=== PATIENT | female | born 1960 | race Caucasian/White ===

== ENCOUNTER 2019-06-18 06:22 | Inpatient (IN) | payer OTHER ==
[2019-06-17 10:18] VITALS: BMI 23.0
[~2019-06-18 06:22] MED LIST: BACITRACIN 15 GM TUBE TOPICAL OINTMENT TP ONE
[2019-06-18] MEDS ORDERED: BUPIVACAINE HCL/PF 0.5% (5MG/ML) 10 ML VIAL ONE (07:22)
[2019-06-18] MEDS ORDERED: BACITRACIN 15 GM TUBE TOPICAL OINTMENT ONE (07:22)
[2019-06-18] MEDS ORDERED: THROMBIN (BOVINE) 5,000 UNIT VIAL TP ONE ×2 (07:23→08:55)
[2019-06-18] MEDS ORDERED: fentaNYL CITRATE 250 MCG/5 ML VIAL ONE (08:02)
[2019-06-18] MEDS ORDERED: PROPOFOL 20 ML ONE ×9 (08:02→10:50)
[2019-06-18] MEDS ORDERED: MIDAZOLAM HCL 2 MG/2 ML SINGLE DOSE VIAL ONE ×2 (08:02)
[2019-06-18] MEDS ORDERED: ROCURONIUM BROMIDE 50 MG/5 ML SYRINGE ONE (08:03)
--- NOTE | 2019-06-18 08:13 | CONSULT ---
Consult - text type - Consultation Consultation Note: NEUROSURGERY Pre-op Pt examined Incision marked All questions answered For L4-5 PLIF and all indicated procedures LSO brace measured this am SSEP/EMG monitoring
[2019-06-18] MEDS ORDERED: ceFAZolin SODIUM 1 GM VIAL IVPB ONE (08:28)
[2019-06-18] MEDS ORDERED: BACITRACIN 50,000 UNITS VIAL NR ONE (08:55)
[2019-06-18] MEDS ORDERED: NEOSTIGMINE METHYLSULFATE 0.5 MG/1 ML - 10 ML MDV ONE (09:41)
[2019-06-18] MEDS ORDERED: BACITRACIN 15 GM TUBE TOPICAL OINTMENT TP ONE (11:33)
[2019-06-18] MEDS ORDERED: BUPIVACAINE HCL/PF 0.5% (5MG/ML) 10 ML VIAL IJ ONE ×2 (11:33)
[2019-06-18] MEDS ORDERED: ONDANSETRON 4 MG/2 ML VIAL IVPUSH PRN ×3 (12:13→12:29)
[2019-06-18] MEDS ORDERED: BISACODYL 10 MG SUPP.RECT RC PRN (12:13)
--- NOTE | 2019-06-18 12:13 | OP ---
Operative Note - Note: Operative Date: 06/18/19 Pre-Operative Diagnosis: L4-5 spondylolisthesis, stenosis, R radiculopathy Operation: B complete L4 and partial B L5 laminectomies, bone graft harvest, facetectomy, interbody and postero-lateral fusion L4-5, bilateral interbody implants 11 x 25 mm, pedicle screw fixation system L4-5; fluoroscopy; microdissection Findings: moderate stenosis central canal and moderate to marked stenosis lateral recess and foramen; instability L4-5; thinned out dura under chronic pressure Implants: [employer] Autumn 4.5 titanium system: 6.5 x 40 mm screws B L4 and L5; B 30 mm rods; 11x25 B L4-5 interbody implants Post-Operative Diagnosis: Same as Pre-op Surgeon: Luis Do (co-surg Lent) Anesthesiologist/PLANT BUYER: Sheyla Eastman MD Anesthesia: General Specimens Removed: L4-5 DDD Estimated Blood Loss (mls): 200
[2019-06-18] MEDS ORDERED: diazePAM 5 MG TABLET PO SCH (12:15)
[2019-06-18] MEDS ORDERED: D5-1/2NS+20 MEQ KCL - 1,000 ML IV SCH (12:15)
[2019-06-18] MEDS ORDERED: HYDROmorphone *PCA* 10MG/50ML DISP.SYRIN ONE (12:25)
[2019-06-18] MEDS ORDERED: PROMETHAZINE HCL 25 MG/1 ML VIAL IVPB PRN (12:29)
[2019-06-18] MEDS ORDERED: DEXAMETHASONE SOD PHOSPHATE 4 MG/1 ML VIAL IVPUSH PRN (12:29)
[2019-06-18] MEDS ORDERED: LACTATED RINGERS SOLUTION 1,000 ML IV SCH (12:30)
[2019-06-18] MEDS ORDERED: HYDROmorphone *PCA* 10MG/50ML DISP.SYRIN PCA SCH (12:30)
[2019-06-18 13:02] LABS: HEMATOCRIT 34.1 % (32.4-45.2); HEMOGLOBIN 11.9 GM/dL (10.7-15.3); MCH 31.9 pg (25.7-33.7); MEAN CELL VOLUME 91.1 fl (80-96); MEAN PLT VOLUME 9.5 fl (7.5-11.1); PLATELET COUNT 143 K/MM3 (134-434); RBC 3.74 M/mm3 (3.60-5.2); RDW 13.5 % (11.6-15.6); WHITE BLOOD COUNT 5.1 K/mm3 (4.0-10.0)
--- NOTE | 2019-06-18 13:09 | PN ---
Progress Note (short form) - Note Progress Note: NEUROSURGERY In PACU Incisional pain AF, VSS, O2 sat 100% PE: still sleepy CV- RR; Lungs- CTA B; Abd- benign; Ext- no sign of DVT CN- intact; Motor- B UE/LE at least 4-; Sensation- intact LT Dressing intact LSO brace pending (measured this am) Pain meds- FACTORY MACHINE COMPUTER OPERATOR Valium for muscle relaxation iv abx Incentive spirometry Labs pending Findings d/w family
[2019-06-18] MEDS ORDERED: PROMETHAZINE HCL 25 MG/1 ML VIAL ONE (13:22)
[2019-06-18 13:26] LABS: BLOOD UREA NITROGEN 9.4 mg/dL (7-18); CALCIUM 8.4 mg/dL (8.5-10.1); CREATININE 0.8 mg/dL (0.55-1.3); POTASSIUM 3.7 mmol/L (3.5-5.1)
[2019-06-18] MEDS: D5-1/2NS+20 MEQ KCL - 20 MEQ/1,000 ML INFUS.BAG IV SCH (15:00)
[2019-06-18] MEDS ORDERED: ceFAZolin SODIUM 1 GM VIAL ONE (17:28)
[2019-06-18] MEDS ORDERED: CEFAZOLIN 1 GM/D5W 1 GM/50 ML BAG IVPB SCH (18:00)
--- NOTE | 2019-06-18 20:44 | OP ---
DATE OF OPERATION: 06/18/2019 PREOPERATIVE DIAGNOSIS: L4-5 radiculopathy and instability. POSTOPERATIVE DIAGNOSIS: L4-5 radiculopathy and instability. PROCEDURE: L4-5 posterior lumbar interbody fusion. SURGICAL ATTENDING: Db Block M.D., Luis Do M.D. CLOSURE: Number 1 Vicryl fascia, 3-0 subcutaneous and 4-0 Vicryl subcuticular for skin. ESTIMATED BLOOD LOSS: Less than 100 mL. COMPLICATIONS: None. CONDITION: To recovery in stable condition. DESCRIPTION OF OPERATIVE PROCEDURE: Patient taken to the operating room on June 18, 2019. General anesthesia and endotracheal intubation was administered by the anesthesiologist. IV antibiotics were administered prophylactically prior to the case. The patient was placed in the prone position with all prominences well padded in the usual fashion. The lower lumbar region was prepped and draped in the usual sterile fashion. Isolation at the appropriate level was confirmed using spinal needle and x-ray. A 3-inch longitudinal incision was made over the spinous processes from L2-5. Hemostasis achieved with Bovie cautery. Sharp dissection was carried down to the level of spinous processes. Subperiosteal dissection was performed down to the level of the lamina both on the right and left sides. At this time, Dr. Jhon Do, neurosurgeon, assumed control of the case to perform the interbody fusion. After Dr. Jhon Do completed the interbody fusion, we closed the incision in layers. The fascia was closed with number 1 Vicryl, 3-0 Vicryl for subcutaneous and 4-0 for skin with Steri-Strips and pressure dressing. Patient was awakened from anesthesia and transferred to recovery in stable condition with no complications. DB BLOCK M.D. [id number]
[2019-06-18] MEDS: diazePAM 5 MG TABLET PO SCH (22:00)
[2019-06-18] MEDS: DOCUSATE SODIUM 100 MG CAPSULE (FP) PO SCH (22:00)
[2019-06-19] MEDS ORDERED: DEXTROSE 5%-WATER - 50 ML IVPB ONE ×2 (01:34→09:20)
[2019-06-19] MEDS ORDERED: ceFAZolin SODIUM 1 GM VIAL ONE ×2 (01:34→09:20)
[2019-06-19] MEDS: CEFAZOLIN 1 GM in DEXTROSE 5%-WATER - 50 ML IVPB SCH ×2 (01:43→09:25)
[2019-06-19] MEDS: diazePAM 5 MG TABLET PO SCH (06:00)
[2019-06-19] MEDS: DOCUSATE SODIUM 100 MG CAPSULE (FP) PO SCH ×3 (06:00→21:13)
--- NOTE | 2019-06-19 09:08 | PN ---
Progress Note (short form) - Note Progress Note: NEUROSURGERY POD #1 Incisional pain Able to void this am x2 Only mild R thigh pain Tmax 100.1, AF now, VSS On DIGITIZER for pain PE: still somewhat sleepy CV- RR; Lungs- CTA B; Abd- benign; Ext- no sign of DVT CN- intact; Motor- B UE/LE at least 4+; Sensation- intact LT Dressing intact Labs reviewed- ok Back brace when OOB Pain meds- DIGITIZER Valium for muscle relaxation, decrease to 2 mg tid Incentive spirometry iv abx Incentive spirometry Findings d/w pt
--- NOTE | 2019-06-19 09:22 | OP ---
DATE OF OPERATION: 06/18/2019 PREOPERATIVE DIAGNOSES: 1. L4-L5 spondylolisthesis with moderate central and moderate to marked lateral recess and foraminal stenosis and lumbar radiculopathy. 2. Multilevel lumbar degenerative disc disease. POSTOPERATIVE DIAGNOSES: 1. L4-L5 spondylolisthesis with moderate central and moderate to marked lateral recess and foraminal stenosis and lumbar radiculopathy. 2. Multilevel lumbar degenerative disc disease. PROCEDURE: 1. Complete bilateral L4 and partial bilateral L5 laminectomy for decompressive laminectomies including facetectomy and foraminotomy and discectomy at L4-L5 (44143-73-68, [id number]). 2. Osseo autologous lamina and spinous process bone for interbody and posterolateral fusion ([id number]). 3. Microsurgical dissection with operative microscope with microsurgical technique ([id number]). 4. Posterior lumber interbody and posterolateral fusion at L4-L5 ([id number]). 5. Utilization intervertebral bilateral interbody implants 11 x 25 mm in size from [employer] ([id number]). 6. Posterior lumbar pedicle screw fixation system placement from L4 to L5 with [employer] via Autumn 4.5 titanium system (6.5 x 40 mm screws bilaterally and 30 mm rods bilaterally with locking screws) ([id number]). 7. Intraoperative fluoroscopy for localization and pedicle screw placement ([id number]). ATTENDING SURGEON: Luis Do MD CO-SURGEON: Db Block MD ESTIMATED BLOOD LOSS: 200 mL. ANESTHESIA: General endotracheal. ANESTHESIOLOGIST: Sheyla Eastman MD FINDINGS: 1. L4-L5 spondylolisthesis and instability. 2. Marked spinal stenosis at L4-L5 with irritable lumbar nerve roots. INDICATIONS: The patient is a 59-year-old female with back pain and lumbar radiculopathy. Because of her intractable symptoms and failure of conservative treatment, she has opted for lumbar decompression and fusion with instrumentation. MRI demonstrated L4-L5 spondylolisthesis and stenosis, and she has predominant right-sided sciatica. She has failed multimodalities of conservative treatment. The risks of surgery include, but are not limited to, bleeding, infection, dural tear with CSF leak, neurological injury, increased thromboembolic risks, and the risks of general anesthesia. The patient understands the indications for procedure, the procedure in detail, risks and benefits, and alternatives for treatment of her lumbar condition, and wishes to proceed with surgery. No guarantees were given for a favorable outcome. PROCEDURE IN DETAIL: The patient was taken to the operating room. She was placed in supine position. After general anesthesia was induced and appropriate monitoring lines were placed, the SSEP and EMG electrodes were placed, a Quintero catheter was placed. The patient was then turned into a prone position on a Osei frame. All pressure points were checked and padded. Baseline monitoring signals were obtained. The exposure was obtained by Dr. Block and was dictated under separate dictation. After the procedure was taken over from Dr. Block, 2 self-retaining retractors were inserted, and the localizing x-ray was obtained with the clamp at the L4-L5 interspinous space. The supraspinous and intraspinous ligament were resected with a Leksell rongeur and the spinous process at L4 and partially at L3 was resected with Leksell rongeur. A complete laminectomy was carried out at L4 bilaterally as well as partially at L5 bilaterally. The bone was saved and morselized for bone graft purposes via bone mill. Facetectomy was also carried out to mobilize the spine at the L4-L5 level. There was already segmental instability prior to the laminectomy. This portion of the procedure was performed with the use of the operative microscope for both illumination and magnification. Microsurgical techniques were utilized. Adequate hemostasis was obtained with bipolar electrocautery. After decompression of the lateral recess was carried out, under gentle nerve root retraction, this annulus was incised with a No. 15 blade on the left side, serially larger disc space scrapers from 6 up to 11 mm were used. A 12 mm disc space retractor was used after disc space was cleaned out with some pituitary rongeurs. Attention was then turned to right-sided disc space. With gentle right L5 nerve root retraction, disc annulus was incised with a No. 15 blade. Gentle retraction was applied because there was a fairly thin-appearing dura because of chronic pressure most likely. Serially larger disc space scrapers from 7 to 11 mm were used, and side-cutting as well as down-cutting curettes were used to clean the space. Disc material was removed with pituitary rongeur. An 11 x 25 mm interbody implant was inserted and countersunk by about 10 mm from the posterior margin of L5 vertebral body. Because of the anterolisthesis at L4-L5, it was only flush with the posterior margin of the L4 vertebral body. Attention was then turned to the left-sided disc space where the disc space cleaning procedure was repeated. After disc material was removed, a central portion of disc material was packed with autologous morselized bone graft with bone dust, which was harvested from the laminectomy portion of the procedure. Another 11 x 25 mm interbody similar implant was placed and countersunk. At this point, the microscope was moved out of the way, and fluoroscope was brought first to the AP position, and then lateral position and then draped sterilely. The anterior points of the pedicle screws were marked with the high-speed pneumatic drill. The hand-held awl was used to create a path for the pedicle screws. The screw holes were then tapped and then palpated. Bicortical screw purchase was performed at L5 in order to try to reduce the spondylolisthesis and to have good bone purchase. The screws were placed at L4 and L5 bilaterally with 6.5 x 40 mm screws. EMG threshold with the screws were all greater than 18 milliamps. The 30 mm rods were loaded on top of the screws and locked down with locking screws. The screws were compressed prior to final tightening. Torque and counter-torque wrenches were used for final tightening of the screw system. The wound was once again irrigated with antibiotic-containing irrigation. The posterolateral surface of the spine was decorticated with high-speed pneumatic drill and packed with autologous morselized bone graft and bone dust. Then, 20 mL of 0.5% Marcaine were injected into the paraspinal muscles bilaterally. After hemostasis was obtained, the wound was irrigated with antibiotic-containing irrigation. The closure was dictated by Dr. Block under a separate dictation. The patient tolerated the procedure well, was turned back to the supine position and extubated. All needle and lap counts were correct. SSEP and EMG signals remained stable throughout. This patient received 1 dose of 1 g of Ancef prior to incision. The OR timeout procedure was followed. Juani [id number] cc: Db Block MD [facility]OSPITALCrystal
--- NOTE | 2019-06-19 13:09 | PN ---
Progress Note (short form) - Note Progress Note: Anesthesia POD#1 S/P PLIF under GA and TESTER OPERATOR VSS,no N/V,pain is still a factor,feels dizzy when stands. ON TESTER OPERATOR for the pain control. A/P Continue the TESTER OPERATOR today. Pilar Ac MD.
[2019-06-19] MEDS: diazePAM 2 MG TABLET PO SCH ×2 (13:56→21:13)
[2019-06-19] MEDS: D5-1/2NS+20 MEQ KCL - 20 MEQ/1,000 ML INFUS.BAG IV SCH (13:56)
[2019-06-19] MEDS: ACETAMINOPHEN 325 MG TABLET (FP) PO PRN (16:36)
[2019-06-20] MEDS: D5-1/2NS+20 MEQ KCL - 20 MEQ/1,000 ML INFUS.BAG IV SCH ×3 (00:05→23:10)
[2019-06-20] MEDS: diazePAM 2 MG TABLET PO SCH ×3 (05:38→23:10)
[2019-06-20] MEDS: DOCUSATE SODIUM 100 MG CAPSULE (FP) PO SCH ×3 (05:38→23:10)
--- NOTE | 2019-06-20 08:05 | PN ---
Progress Note (short form) - Note Progress Note: NEUROSURGERY POD #2 Incisional pain Able to void fine No BM yest Tmax 101.2 now 100.3, VSS On HUMAN RESOURCE ASSISTANT for pain PE: A/A CV- RR; Lungs- CTA B; Abd- benign; Ext- no sign of DVT CN- intact; Motor- B UE/LE at least 4+; Sensation- intact LT Incision C/D/I- changed Back brace when OOB Pain meds- HUMAN RESOURCE ASSISTANT Valium for muscle relaxation, decrease to 2 mg tid Incentive spirometry iv abx for now Findings d/w pt
[2019-06-20] MEDS ORDERED: KETOROLAC TROMETHAMINE 30 MG/1 ML VIAL IVPUSH ONE (10:57)
[2019-06-20] MEDS ORDERED: ACETAMINOPHEN 1000 MG/100 ML VIAL (NON FORMULARY) IVPB ONE (10:58)
[2019-06-20 15:12] LABS: URINE APPEARANCE CLEAR; URINE BILIRUBIN NEGATIVE (NEGATIVE); URINE COLOR YELLOW; URINE GLUCOSE (UA) NEGATIVE (NEGATIVE); URINE KETONE NEGATIVE (NEGATIVE); URINE LEUK ESTERASE NEGATIVE (NEGATIVE); URINE NITRITE NEGATIVE (NEGATIVE); URINE PROTEIN NEGATIVE (NEGATIVE)
[2019-06-20] MEDS: ACETAMINOPHEN 325 MG TABLET (FP) PO PRN (17:51)
[2019-06-20] MEDS ORDERED: MAGNESIUM CITRATE 300 ML BOTTLE PO ONE (18:15)
[2019-06-21] MEDS: ACETAMINOPHEN 325 MG TABLET (FP) PO PRN (03:20)
[2019-06-21] MEDS ORDERED: ACETAMINOPHEN 325 MG TABLET (FP) PO PRN (04:55)
[2019-06-21] MEDS: DOCUSATE SODIUM 100 MG CAPSULE (FP) PO SCH ×3 (06:15→21:02)
[2019-06-21] MEDS: diazePAM 2 MG TABLET PO SCH ×3 (06:15→21:02)
[2019-06-21 07:05] LABS: BASO % 0.3 % (0-2.0); EOS % 1.7 % (0-4.5); HEMOGLOBIN 11.1 GM/dL (10.7-15.3); LYMPH % 17.4 % (8-40); MCH 32.7 pg (25.7-33.7); MCHC 35.9 g/dl (32.0-36.0); MEAN CELL VOLUME 91.1 fl (80-96); MEAN PLT VOLUME 10.2 fl (7.5-11.1); MONO % 8.5 % (3.8-10.2); NEUT % 72.1 % (42.8-82.8); PLATELET COUNT 132 K/MM3 (134-434); RDW 13.3 % (11.6-15.6); WHITE BLOOD COUNT 5.4 K/mm3 (4.0-10.0)
[2019-06-21 07:31] LABS: POTASSIUM 3.9 mmol/L (3.5-5.1)
--- NOTE | 2019-06-21 09:43 | PN ---
Progress Note (short form) - Note Progress Note: NEUROSURGERY POD #3 Incisional pain Able to void fine No BM yesterday after mag citrate, some abdominal discomfort Tmax 101.8 now 98.7, VSS On AUTOMOTIVE HARDWARE ENGINEER for pain PE: A/A CV- RR; Lungs- CTA B; Abd- benign, hypoactive bowel sounds; Ext- no sign of DVT CN- intact; Motor- B UE/LE at least 4+; Sensation- intact LT Incision C/D/I LS spine x-rays- intact L4-5 implants; ileus Urine culture- pseudomonas? Back brace when OOB Pain meds, on nucynta Blood cultures x2 Incentive spirometry SCD's when in bed iv abx for now Bowel regimen Medical and ID input Findings d/w pt
--- NOTE | 2019-06-21 11:05 | CONSULT ---
Consult Reason for Consultation:: fever - Past Medical History Cardio/Vascular: No: CAD, CHF Pulmonary: No: COPD Gastrointestinal: No: Gastritis, GI Bleed ...LMP: 05/24/14 Musculoskeletal: Yes: Chronic low back pain - Past Surgical History Past Surgical History: Yes: Tubal Ligation - Alcohol/Substance Use Hx Alcohol Use: Yes (occas beer) - Smoking History Smoking history: Never smoked Have you smoked in the past 12 months: No Home Medications - Allergies Allergies/Adverse Reactions: Allergies Allergy/AdvReac Type Severity Reaction Status Date / Time No Known Allergies Allergy Verified 06/17/19 10:27 - Home Medications Home Medications: Ambulatory Orders Ibuprofen [Motrin -] 400 mg PO PRN 06/19/14 Review of Systems - Review of Systems Constitutional: reports: Fever Respiratory: reports: Cough Gastrointestinal: denies: Abdominal Pain, Diarrhea, Dysphagia Genitourinary: reports: Other (SP pressure) Musculoskeletal: reports: Back Pain Physical Exam Vital Signs: Vital Signs Temperature 98.3 F 06/21/19 06:00 Pulse Rate 90 06/21/19 06:00 Respiratory Rate 20 06/21/19 06:00 Blood Pressure 112/65 06/21/19 06:00 O2 Sat by Pulse Oximetry (%) 96 06/20/19 21:00 Cardiovascular: Yes: Regular Rate and Rhythm Respiratory: Yes: Rales (at the bases) Gastrointestinal: Yes: Normal Bowel Sounds, Soft Labs: CBC, BMP 06/21/19 06:33 06/21/19 06:33 Problem List - Problems (1) Postoperative fever Assessment/Plan: cultures id consult regarding abx Code(s): R50.82 - POSTPROCEDURAL FEVER (2) S/P lumbar laminectomy Assessment/Plan: per NS Code(s): Z98.890 - OTHER SPECIFIED POSTPROCEDURAL STATES (3) Cough Assessment/Plan: nebs cxr Code(s): R05 - COUGH
--- NOTE | 2019-06-21 11:53 | CON.ID ---
Consult Referred by:: dr mcfarland Reason for Consultation:: post op fevers - History of Present Illness Chief Complaint: post op fever History of Present Illness: 59 yo female admitted 06/18 for lumbar laminectomy- she had had intermittent fever since 06/19 notes some chills, had some transient dysuria that has resolved has had intermittent cough able to use incentive spirometry easily continues with back pain received ancef periop discontinued 06/19 no fevers prior to procedure no rash no sick contacts history via interpretor she has had back pain for 5 years no BM yest postop - History Source History Provided By: Patient Limitations to Obtaining History: No Limitations - Past Medical History Cardio/Vascular: Yes: Other (low blood pressure) ...LMP: 05/24/14 - Past Surgical History Past Surgical History: Yes: Hysterectomy (laporoscopic hystrectomy 2013), Tubal Ligation - Alcohol/Substance Use Hx Alcohol Use: Yes (occas beer) - Smoking History Smoking history: Never smoked Have you smoked in the past 12 months: No - Social History Usual Living Arrangement: With Child ADL: Independent Place of : Other ([facility]) Home Medications - Allergies Allergies/Adverse Reactions: Allergies Allergy/AdvReac Type Severity Reaction Status Date / Time No Known Allergies Allergy Verified 06/17/19 10:27 - Home Medications Home Medications: Ambulatory Orders Ibuprofen [Motrin -] 400 mg PO PRN 06/19/14 Family Disease History - Family Disease History Family History: Denies Review of Systems - Review of Systems Constitutional: reports: Chills, Fever Eyes: reports: No Symptoms HENT: reports: No Symptoms. denies: Nasal Congestion, Throat Pain, Toothache Neck: reports: No Symptoms Cardiovascular: reports: No Symptoms. denies: Chest Pain, Edema Respiratory: reports: Cough Gastrointestinal: reports: No Symptoms Genitourinary: reports: No Symptoms Breasts: reports: No Symptoms Reported Musculoskeletal: reports: Back Pain Integumentary: reports: No Symptoms Physical Exam Vital Signs: Vital Signs Temperature 98.3 F 06/21/19 06:00 Pulse Rate 90 06/21/19 06:00 Respiratory Rate 20 06/21/19 06:00 Blood Pressure 112/65 06/21/19 06:00 O2 Sat by Pulse Oximetry (%) 96 06/20/19 21:00 Constitutional: Yes: Well Nourished, No Distress Eyes: Yes: Conjunctiva Clear, EOM Intact HENT: Yes: Atraumatic, Normocephalic. No: Pharyngeal Erythema, Thrush, Tonsillar Exudate Neck: Yes: Supple, Trachea Midline Cardiovascular: Yes: Regular Rate and Rhythm Respiratory: Yes: CTA Bilaterally Gastrointestinal: Yes: Normal Bowel Sounds, Soft Renal/: Yes: Other (suprapubic discomfort on palpation) Extremities: No: Erythema Edema: No Wound/Incision: Yes: Other (incision c/d/i per NS) Labs: CBC, BMP 06/21/19 06:33 06/21/19 06:33 Imaging - Results Chest X-ray: Report Reviewed, Image Reviewed Problem List - Problems (1) Postoperative fever Code(s): R50.82 - POSTPROCEDURAL FEVER (2) S/P lumbar laminectomy Code(s): Z98.890 - OTHER SPECIFIED POSTPROCEDURAL STATES (3) Constipation Code(s): K59.00 - CONSTIPATION, UNSPECIFIED Assessment/Plan possible uti- has some suprapubic discomfort on exam agree with blood cultures (just drawn)- obtain ua and urine culture after urine culture is drawn, can start cefepime to cover possiblity of pseudomonas UTI treat constipation thanks
[2019-06-21] MEDS: ALBUTEROL SO4 2.5/IPRATROPIUM 0.5 INH SOL 3 ML VIAL.NEB. NEB SCH ×3 (11:59→20:07)
[2019-06-21] MEDS ORDERED: CEFEPIME 1 GM in DEXTROSE 5%-WATER 100 ML IVPB SCH (12:15)
[2019-06-21] MEDS: TAPENTADOL HYDROCHLORIDE 50 MG TABLET PO PRN (16:13)
[2019-06-21] MEDS ORDERED: CEFEPIME HCL 1 GM VIAL (RESTRICTED TO ID) ONE (16:58)
[2019-06-21] MEDS ORDERED: DEXTROSE 5%-WATER 100 ML IVPB ONE (16:59)
[2019-06-21] MEDS: CEFEPIME 1 GM in DEXTROSE 5%-WATER 100 ML IVPB SCH (17:03)
[2019-06-21] MEDS: D5-1/2NS+20 MEQ KCL - 20 MEQ/1,000 ML INFUS.BAG IV SCH ×2 (17:09→20:54)
[2019-06-21 17:41] LABS: URINE APPEARANCE CLEAR; URINE BILIRUBIN NEGATIVE (NEGATIVE); URINE COLOR YELLOW; URINE GLUCOSE (UA) NEGATIVE (NEGATIVE); URINE KETONE NEGATIVE (NEGATIVE); URINE LEUK ESTERASE NEGATIVE (NEGATIVE); URINE NITRITE NEGATIVE (NEGATIVE); URINE PROTEIN NEGATIVE (NEGATIVE)
[2019-06-21] MEDS: diazePAM 5 MG TABLET PO SCH (18:33)
[2019-06-22] MEDS ORDERED: CEFEPIME HCL 1 GM VIAL (RESTRICTED TO ID) ONE ×4 (00:48→22:00)
[2019-06-22] MEDS ORDERED: DEXTROSE 5%-WATER 100 ML IVPB ONE ×4 (00:48→22:00)
[2019-06-22] MEDS: TAPENTADOL HYDROCHLORIDE 50 MG TABLET PO PRN ×2 (00:51→22:15)
[2019-06-22] MEDS: CEFEPIME 1 GM in DEXTROSE 5%-WATER 100 ML IVPB SCH ×3 (01:40→18:10)
[2019-06-22] MEDS: DOCUSATE SODIUM 100 MG CAPSULE (FP) PO SCH ×3 (05:36→22:15)
[2019-06-22] MEDS: diazePAM 2 MG TABLET PO SCH ×3 (05:36→22:16)
[2019-06-22] MEDS: ALBUTEROL SO4 2.5/IPRATROPIUM 0.5 INH SOL 3 ML VIAL.NEB. NEB SCH ×4 (07:35→20:26)
--- NOTE | 2019-06-22 11:09 | PN ---
Progress Note (short form) - Note Progress Note: on cefepime fevers trending down still constipated no BM eating no vomiting Vital Signs Period Temp Pulse Resp BP Sys/Shah Pulse Ox Last 24 Hr 98.9 F-99.8 F 18-104 18-20 95-108/52-66 96-96 cor-rrr lungs clear abd soft,nt dressing intact ext no edema CBC, BMP 06/21/19 06:33 06/21/19 06:33 Microbiology 06/20/19 14:25 Urine - Urine Clean Catch Urine Culture - Preliminary Pseudomonas Aeruginosa Group D Strep Or Entero Coccus a/p post op fevers resolving on cefepime day #1 for possible uti, repeat cultures pending constipation s/p lumbar laminectomy Problem List - Problems (1) Postoperative fever Code(s): R50.82 - POSTPROCEDURAL FEVER (2) S/P lumbar laminectomy Code(s): Z98.890 - OTHER SPECIFIED POSTPROCEDURAL STATES (3) Constipation Code(s): K59.00 - CONSTIPATION, UNSPECIFIED
--- NOTE | 2019-06-22 11:16 | PN ---
Progress Note (short form) - Note Progress Note: NEUROSURGERY POD #4 Incisional pain Able to void fine No BM yet Medical and ID input appreciated Tmax 99.3, VSS PE: A/A CV- RR; Lungs- CTA B; Abd- benign, + bowel sounds; Ext- no sign of DVT CN- intact; Motor- B UE/LE 5/5; Sensation- intact LT Incision C/D/I LS spine x-rays- intact L4-5 implants; ileus Urine culture- pseudomonas; group D strep Back brace when OOB Pain meds, on nucynta Blood cultures x2 Incentive spirometry SCD's when in bed iv abx for now Bowel regimen Full bottle of mag citrate today Suppository being given D/w Dr Azar, pseudomonas may not be real Urine culture repeated
[2019-06-22] MEDS ORDERED: MAGNESIUM CITRATE 300 ML BOTTLE PO ONE (11:30)
--- NOTE | 2019-06-22 11:58 | PN ---
Progress Note, Physician - Current Medication List Current Medications: Active Medications Acetaminophen (Tylenol -) 650 mg PO Q6H PRN PRN Reason: FEVER Albuterol/Ipratropium (Duoneb -) 1 amp NEB RQID [facility] Last Admin: 06/22/19 11:16 Dose: 1 amp Bisacodyl (Dulcolax Suppository -) 10 mg RC DAILY PRN PRN Reason: CONSTIPATION Dexamethasone Sodium Phosphate (Decadron Injection -) 4 mg IVPUSH ONCE PRN PRN Reason: NAUSEA AND/OR VOMITING Diazepam (Valium -) 2 mg PO TID [facility] Last Admin: 06/22/19 05:36 Dose: 2 mg Diphenhydramine HCl (Benadryl Injection -) 12.5 mg IVPUSH ONCE PRN PRN Reason: FOR ITCHING Docusate Sodium (Colace -) 100 mg PO TID [facility] Last Admin: 06/22/19 05:36 Dose: 100 mg Potassium Chloride/Dextrose/Sod Cl (D5-1/2ns+20 Meq Kcl -) 20 meq in 1,000 mls @ 100 mls/hr IV ASDIR [facility] Last Admin: 06/21/19 20:54 Dose: 100 mls/hr Cefepime HCl 1 gm/ Dextrose 100 mls @ 200 mls/hr IVPB Q8H-IV [facility]; Protocol Last Admin: 06/22/19 09:01 Dose: 200 mls/hr Magnesium Citrate (Citroma -) 150 ml PO ONCE PRN PRN Reason: IF NO BM AFTER 1130 DOSE Ondansetron HCl (Zofran Injection) 4 mg IVPUSH Q4H PRN PRN Reason: NAUSEA AND/OR VOMITING Promethazine HCl (Phenergan Injection -) 12.5 mg IVPB Q6H PRN PRN Reason: NAUSEA AND/OR VOMITING Last Admin: 06/18/19 13:23 Dose: 12.5 mg Tapentadol (Nucynta -) 50 mg PO Q6H PRN PRN Reason: PAIN LEVEL 6-10 Last Admin: 06/22/19 00:51 Dose: 50 mg - Objective Vital Signs: Vital Signs Temperature 99.3 F 06/22/19 09:00 Pulse Rate 101 H 06/22/19 09:00 Respiratory Rate 20 06/22/19 09:00 Blood Pressure 108/59 L 06/22/19 09:00 O2 Sat by Pulse Oximetry (%) 96 06/22/19 09:00 Cardiovascular: Yes: Regular Rate and Rhythm Respiratory: Yes: Regular, CTA Bilaterally Gastrointestinal: Yes: Normal Bowel Sounds, Soft. No: Tenderness Labs: CBC, BMP 06/21/19 06:33 06/21/19 06:33 Problem List - Problems (1) Postoperative fever Assessment/Plan: cultures noted Microbiology 06/21/19 11:25 Blood - Peripheral Venous Blood Culture - Preliminary NO GROWTH OBTAINED AFTER 24 HOURS, INCUBATION TO CONTINUE FOR 4 DAYS. 06/21/19 11:35 Blood - Peripheral Venous Blood Culture - Preliminary NO GROWTH OBTAINED AFTER 24 HOURS, INCUBATION TO CONTINUE FOR 4 DAYS. 06/20/19 14:25 Urine - Urine Clean Catch Urine Culture - Preliminary Pseudomonas Aeruginosa Group D Strep Or Entero Coccus id consult regarding abx Code(s): R50.82 - POSTPROCEDURAL FEVER (2) S/P lumbar laminectomy Assessment/Plan: per NS Code(s): Z98.890 - OTHER SPECIFIED POSTPROCEDURAL STATES (3) Cough Assessment/Plan: nebs cxr Code(s): R05 - COUGH
[2019-06-22] MEDS: D5-1/2NS+20 MEQ KCL - 20 MEQ/1,000 ML INFUS.BAG IV SCH (13:46)
[2019-06-22] MEDS ORDERED: MAGNESIUM CITRATE 300 ML BOTTLE PO PRN (15:30)
[2019-06-22] MEDS ORDERED: PT OWN MED DRAWER 7, Y5N ONE (18:04)
[2019-06-23] MEDS: CEFEPIME 1 GM in DEXTROSE 5%-WATER 100 ML IVPB SCH ×2 (02:06→10:56)
[2019-06-23] MEDS: D5-1/2NS+20 MEQ KCL - 20 MEQ/1,000 ML INFUS.BAG IV SCH ×4 (02:07→22:28)
[2019-06-23] MEDS: TAPENTADOL HYDROCHLORIDE 50 MG TABLET PO PRN ×3 (04:17→21:03)
[2019-06-23] MEDS: diazePAM 2 MG TABLET PO SCH ×3 (06:05→21:02)
[2019-06-23] MEDS: DOCUSATE SODIUM 100 MG CAPSULE (FP) PO SCH ×3 (06:05→21:01)
[2019-06-23] MEDS: ALBUTEROL SO4 2.5/IPRATROPIUM 0.5 INH SOL 3 ML VIAL.NEB. NEB SCH ×4 (07:15→19:46)
--- NOTE | 2019-06-23 08:27 | PN ---
Progress Note, Physician Chief Complaint: AWAKE ALERT +BM/URINATIONS PAIN CONTROLLED - Current Medication List Current Medications: Active Medications Acetaminophen (Tylenol -) 650 mg PO Q6H PRN PRN Reason: FEVER Albuterol/Ipratropium (Duoneb -) 1 amp NEB RQID [facility] Last Admin: 06/23/19 07:15 Dose: 1 amp Bisacodyl (Dulcolax Suppository -) 10 mg RC DAILY PRN PRN Reason: CONSTIPATION Dexamethasone Sodium Phosphate (Decadron Injection -) 4 mg IVPUSH ONCE PRN PRN Reason: NAUSEA AND/OR VOMITING Diazepam (Valium -) 2 mg PO TID [facility] Last Admin: 06/23/19 06:05 Dose: 2 mg Diphenhydramine HCl (Benadryl Injection -) 12.5 mg IVPUSH ONCE PRN PRN Reason: FOR ITCHING Docusate Sodium (Colace -) 100 mg PO TID [facility] Last Admin: 06/23/19 06:05 Dose: 100 mg Potassium Chloride/Dextrose/Sod Cl (D5-1/2ns+20 Meq Kcl -) 20 meq in 1,000 mls @ 100 mls/hr IV ASDIR [facility] Last Admin: 06/23/19 02:07 Dose: 100 mls/hr Cefepime HCl 1 gm/ Dextrose 100 mls @ 200 mls/hr IVPB Q8H-IV [facility]; Protocol Last Admin: 06/23/19 02:06 Dose: 200 mls/hr Magnesium Citrate (Citroma -) 150 ml PO ONCE PRN PRN Reason: IF NO BM AFTER 1130 DOSE Last Admin: 06/22/19 13:47 Dose: 150 ml Ondansetron HCl (Zofran Injection) 4 mg IVPUSH Q4H PRN PRN Reason: NAUSEA AND/OR VOMITING Promethazine HCl (Phenergan Injection -) 12.5 mg IVPB Q6H PRN PRN Reason: NAUSEA AND/OR VOMITING Last Admin: 06/18/19 13:23 Dose: 12.5 mg Tapentadol (Nucynta -) 50 mg PO Q6H PRN PRN Reason: PAIN LEVEL 6-10 Last Admin: 06/23/19 04:17 Dose: 50 mg - Objective Vital Signs: Vital Signs Temperature 99.4 F 06/23/19 06:00 Pulse Rate 89 06/23/19 06:00 Respiratory Rate 20 06/23/19 06:00 Blood Pressure 96/55 L 06/23/19 06:00 O2 Sat by Pulse Oximetry (%) 96 06/22/19 21:00 Constitutional: Yes: Mild Distress Cardiovascular: Yes: Regular Rate and Rhythm Respiratory: Yes: WNL Gastrointestinal: Yes: Soft Musculoskeletal: Yes: Back Pain Integumentary: Yes: Other Neurological: Yes: Pre-Existing Deficit Problem List - Problems (1) S/P lumbar laminectomy Code(s): Z98.890 - OTHER SPECIFIED POSTPROCEDURAL STATES Assessment/Plan POD 4 FEELING BETTER ABX STOPPED PER ID FOR UTI OOB TO CHAIR DC PLANNING TOMORROW DVT PROPHYLAXIS/PAIN CONTROL
--- NOTE | 2019-06-23 08:34 | PN ---
Progress Note (short form) - Note Progress Note: NEUROSURGERY POD #5 Incisional pain No R leg sciatica at all Able to void fine Some cough, mild nasal discharge Large BM this am. given mag citrate and dulcolax yesterday Medical and ID input appreciated Tmax 99.7, now 99.4 VSS PE: A/A CV- RR; Lungs- CTA B; Abd- benign, NT/ND, + bowel sounds; Ext- no sign of DVT CN- intact; Motor- B UE/LE 5/5; Sensation- intact LT Incision C/D/I- changed AM labs- pending UA- negative x2 LS spine x-rays- intact L4-5 implants; ileus Urine culture (initial) - pseudomonas; group D strep Blood cultures negative to date Back brace when OOB, giving pt some good support Pain meds, on nucynta Incentive spirometry SCD's when in bed iv abx for now Cont bowel regimen D/w Dr Azar, pseudomonas may not be real on initial culture Repeat urine culture pending
[2019-06-23 09:07] LABS: ALBUMIN 2.9 g/dl (3.4-5.0); BILIRUBIN,DIRECT 0.1 mg/dL (0.0-0.2); BILIRUBIN,TOTAL 0.6 mg/dL (0.2-1); POTASSIUM 4.6 mmol/L (3.5-5.1); TOT PROT 5.9 g/dl (6.4-8.2)
[2019-06-23 09:11] LABS: ALBUMIN 2.9 g/dl (3.4-5.0); BILIRUBIN,TOTAL 0.4 mg/dL (0.2-1); CALCIUM 8.6 mg/dL (8.5-10.1); CREATININE 0.6 mg/dL (0.55-1.3); POTASSIUM 4.5 mmol/L (3.5-5.1); TOT PROT 5.8 g/dl (6.4-8.2)
[2019-06-23 10:04] LABS: BASO % 0.4 % (0-2.0); HEMATOCRIT 31.4 % (32.4-45.2); LYMPH % 20.7 % (8-40); MCHC 34.9 g/dl (32.0-36.0); MEAN CELL VOLUME 91.7 fl (80-96); MEAN PLT VOLUME 10.5 fl (7.5-11.1); MONO % 9.2 % (3.8-10.2); NEUT % 65.7 % (42.8-82.8); PLATELET COUNT 151 K/MM3 (134-434); RBC 3.42 M/mm3 (3.60-5.2); RDW 13.1 % (11.6-15.6); WHITE BLOOD COUNT 3.7 K/mm3 (4.0-10.0)
[2019-06-23] MEDS ORDERED: DEXTROSE 5%-WATER 100 ML IVPB ONE (10:47)
[2019-06-23] MEDS ORDERED: CEFEPIME HCL 1 GM VIAL (RESTRICTED TO ID) ONE (10:47)
--- NOTE | 2019-06-23 13:22 | PN ---
Progress Note (short form) - Note Progress Note: +bm no abdominal pain fevers resolved eating no vomiting Vital Signs Period Temp Pulse Resp BP Sys/Shah Pulse Ox Last 24 Hr 97.6 F-99.7 F 89-107 18-20 96-107/52-68 96 cor-rrr lungs clear abd soft,nt ext no edema UA is negative CBC, BMP 06/23/19 07:27 06/23/19 07:27 Microbiology 06/20/19 14:25 Urine - Urine Clean Catch Urine Culture - Final Pseudomonas Aeruginosa Enterococcus Faecalis 06/21/19 11:25 Blood - Peripheral Venous Blood Culture - Preliminary NO GROWTH OBTAINED AFTER 48 HOURS, INCUBATION TO CONTINUE FOR 3 DAYS. 06/21/19 11:35 Blood - Peripheral Venous Blood Culture - Preliminary NO GROWTH OBTAINED AFTER 48 HOURS, INCUBATION TO CONTINUE FOR 3 DAYS. 06/21/19 15:16 Urine - Urine Clean Catch Urine Culture - Preliminary Pseudomonas Species Group D Strep Or Entero Coccus a/p post op fevers resolving on cefepime day #2 for possible uti, low colony count not c/w uti will d/c antibiotics constipation resolved s/p lumbar laminectomy-ambulating Problem List - Problems (1) Postoperative fever Code(s): R50.82 - POSTPROCEDURAL FEVER (2) S/P lumbar laminectomy Code(s): Z98.890 - OTHER SPECIFIED POSTPROCEDURAL STATES (3) Constipation Code(s): K59.00 - CONSTIPATION, UNSPECIFIED
--- NOTE | 2019-06-23 18:26 | PATH ---
Surgical Pathology Report Patient Name: LANA DOMINGUEZ Med. Rec. #: [id number] /Age/Gender: 1960 (Age: 59) / F Account: [id number] Location: [facility] MED/SURG Taken: 06/18/2019 Received: 06/18/2019 Reported: 06/23/2019 Physicians: Luis Do M.D. Specimen(s) Received DISC L4-L5 Clinical History L4/5 spondylolisthesis/hernia Final Diagnosis DISC, L4-L5, POSTERIOR LUMBAR INTERBODY FUSION: BENIGN INTERVERTEBRAL DISC TISSUE. Electronically Signed Lana Landaverde M.D. Gross Description Received in formalin labeled "disc L4-L5," is a 4.0 x 3.0 x 0.4 cm aggregate of dave fragments of fibrocartilaginous tissue. A outbound sales representative portion is submitted in one cassette. /06/19/2019 [facility]06/19/2019
--- NOTE | 2019-06-24 04:56 | PN ---
Progress Note (short form) - Note Progress Note: NEUROSURGERY POD #6 Appreciate medical and ID input Incisional pain better No R leg sciatica Large BM yesterday AM Medical and ID input appreciated Tmax 99.1, VSS PE: A/A CV- RR; Lungs- CTA B; Abd- benign, NT/ND, + bowel sounds; Ext- no sign of DVT CN- intact; Motor- B UE/LE 5/5; Sensation- intact LT Incision C/D/I- changed Labs checked UA- negative x2 LS spine x-rays- intact L4-5 implants; ileus Urine culture (initial) - pseudomonas; group D strep/enterococcus x2 Blood cultures negative Back brace when OOB Pain meds, on nucynta Incentive spirometry SCD's when in bed Cont bowel regimen Given spinal implants would place on levaquin x 1 wk
[2019-06-24] MEDS: D5-1/2NS+20 MEQ KCL - 20 MEQ/1,000 ML INFUS.BAG IV SCH ×2 (05:51→13:46)
[2019-06-24] MEDS: DOCUSATE SODIUM 100 MG CAPSULE (FP) PO SCH ×2 (05:52→13:50)
[2019-06-24] MEDS: diazePAM 2 MG TABLET PO SCH ×2 (05:52→13:50)
[2019-06-24] MEDS: ALBUTEROL SO4 2.5/IPRATROPIUM 0.5 INH SOL 3 ML VIAL.NEB. NEB SCH ×2 (08:13→12:07)
--- NOTE | 2019-06-24 08:41 | DS ---
Physical Examination Vital Signs: Vital Signs Temperature 99.6 F 06/24/19 06:00 Pulse Rate 96 H 06/24/19 06:00 Respiratory Rate 20 06/24/19 06:00 Blood Pressure 130/69 06/24/19 06:00 O2 Sat by Pulse Oximetry (%) 98 06/23/19 21:00 Constitutional: Yes: Mild Distress Cardiovascular: Yes: Regular Rate and Rhythm Respiratory: Yes: WNL, CTA Bilaterally Gastrointestinal: Yes: WNL Renal/: Yes: WNL Musculoskeletal: Yes: Back Pain, Muscle Weakness Integumentary: Yes: Other Neurological: Yes: Other Labs: CBC, BMP 06/23/19 07:27 06/23/19 07:27 Discharge Summary Reason For Visit: SPONDYLOLISTHESIS, SITE UNSPECIFIED Current Active Problems Constipation (Acute) Cough (Acute) Postoperative fever (Acute) S/P lumbar laminectomy (Acute) Procedures: Principal: LAMINECTOMY Hospital Course: ADMITTED FOR LAMINECTOMY LUMBAR, MONITORED POST OP, FEVER TREATED WITH ABX, F/U WITH PMD OUTPATIENT DID NOT QUALIFY FOR SNF WALKED 100FT HOME WITH [facility] Condition: Stable - Instructions Diet, Activity, Other Instructions: Post-op Lumbar Decompression Diet: Regular Activity: Out of bed with back brace. May shower but keep incision line dry. Change dressing afterwards Restrictions: Do not lift anything over 10lbs. Additional Instructions: Keep incision line clean and dry. Change dressing daily. Report any chills, fever (100 or greater), any wound drainage, or any neurological changes to Dr. Do. Do not drive for two weeks. Initial post-op visit: Call Dr Do's office to set up initial postop appt. SEE YOUR PRIMARY DOCTOR IN 1 WEEK Disposition: VNS/HOME HEALTH CARE - Home Medications Comprehensive Discharge Medication List: Ambulatory Orders Tapentadol Hydrochloride [Nucynta -] 50 mg PO Q4HWA PRN #35 tablet MDD 5 levoFLOXacin [Levaquin -] 500 mg PO DAILY #7 tablet 06/23/19
[2019-06-24 12:03] VITALS: BP 108/60; PULSE 95; TEMP 98.8
== END 2019-06-24 15:16 | disposition home health service (06) | DRG 454 ==
LOC: JSAMEDAYSX 06:22 → J8W 18:25
PROVIDERS: ADMIT Orthopaedic Surgery; ATTEND Orthopaedic Surgery
PROC: 0SG0071 Fusion of Lumbar Vertebral Joint with Autologous Tissue Substitute, Posterior Approach, Posterior Column, Open Approach (ICD-10-PCS; 2019-06-18)
PROC: 01NB0ZZ Release Lumbar Nerve, Open Approach (ICD-10-PCS; 2019-06-18)
PROC: 0SB20ZZ Excision of Lumbar Vertebral Disc, Open Approach (ICD-10-PCS; 2019-06-18)
PROC: B01BZZZ Fluoroscopy of Spinal Cord (ICD-10-PCS; 2019-06-18)
PROC: 4A11X4G Monitoring of Peripheral Nervous Electrical Activity, Intraoperative, External Approach (ICD-10-PCS; 2019-06-18)
PROC: 0SG00AJ Fusion of Lumbar Vertebral Joint with Interbody Fusion Device, Posterior Approach, Anterior Column, Open Approach (ICD-10-PCS; principal; 2019-06-18 08:00)
DX: M43.16 Spondylolisthesis, lumbar region (principal); N39.0 Urinary tract infection, site not specified; M48.061 Spinal stenosis, lumbar region without neurogenic claudication; M51.16 Intervertebral disc disorders with radiculopathy, lumbar region; K59.00 Constipation, unspecified; R50.82 Postprocedural fever; R05 Cough; B96.5 Pseudomonas (aeruginosa) (mallei) (pseudomallei) as the cause of diseases classified elsewhere
CPT/HCPCS: 36415; 71045-TC-FY; 72100-TC-FY; 76000-TC-FY; 80048; 80051; 80053; 80076; 81003; 84443; 85025; 85027; 86850; 86900; 86901; 87040; 87086; 87186; 88304-TC; 94640; 94760; 97116-GP; 97162-GP; J0131

== ENCOUNTER 2019-06-28 21:01 | Emergency (ER) | payer OTHER | END 2019-06-29 04:09 | disposition home or self-care (01) | LOC: JER 21:01 | PROC: 3E033GC Introduction of Other Therapeutic Substance into Peripheral Vein, Percutaneous Approach (ICD-10-PCS; principal; 2019-06-28) | DX: R11.2 Nausea with vomiting, unspecified (principal); Z98.890 Other specified postprocedural states ==